=== PATIENT | female | born 1950 | race Caucasian/White ===

== ENCOUNTER 2016-08-21 12:43 | Emergency (ER) | payer MEDICARE, OTHER ==
[~2016-08-21] VITALS: Wt 105.0 kg
[~2016-08-21 12:43] MED LIST: ALEN70TA30; AMLO2.5T78 PO; BENA10TA48 PO; CALC-277; CARV6.2579; CLON-379 PO; CLON0.1T14; DOCU100C26; ERGO500014; GABA600T PO; HIGH BP MED PO; HYDR12.53; IBUP-1542; MECL25TA2; METO50TA16; OMEP20CA9; OXYB5TAB7; PRA40; SIMV20TA2; TEGRETOL PO; TRAM50TA2 PO
[2016-08-21] MEDS ORDERED: FAMOTIDINE 20 MG INJ IV ONE (16:00)
[2016-08-21] MEDS ORDERED: DIPHENHYDRAMINE 50 MG INJ IV STA (16:00)
[2016-08-21] MEDS ORDERED: METHYLPREDNISOLONE 125 MG INJ IV STA (16:00)
[2016-08-21] MEDS ORDERED: SOD CHLORIDE 0.9% 500 ML IV ONE (16:30)
[2016-08-21] MEDS ORDERED: FAMO-18 PO (17:29)
[2016-08-21] MEDS ORDERED: BEN25 PO (17:29)
[2016-08-21] MEDS ORDERED: PRED20TA PO (17:29)
[2016-08-21] MEDS ORDERED: EPIN0.3P4 INJ (17:30)
[2016-08-21] MEDS ORDERED: GUAI-637 PO (17:33)
--- NOTE | 2016-08-21 17:43 | ERD ---
ER Documentation Chief Complaint Date/Time DATE: 08/21/16 TIME: 17:39 Chief Complaint ALLERGIC REACTION X 1 YEAR WORST TODAY HPI Patient is a 66-year-old female with a history of chronic urticaria, hypertension, hyperlipidemia, osteoporosis, who presents emergency department for hives. Patient states that she has had hives for over one year now. Patient states that that her hives started after receiving amoxicillin 1 year ago. Patient states she is seen numerous purchase analyst as well as qualifications examiner for her chronic hives. Patient reports being allergy tested however she states that they have been unable to find out the exact cause of her ongoing hives. Patient states she has also had numerous biopsies and blood tests done. Patient states she has been taking Zyrtec, Zantac, singular, no relief of symptoms. Patient received was started on Xolair. Patient denies any chest pain, chest tightness, shortness of breath, tongue swelling, lip swelling, throat swelling or loss of consciousness. ROS All systems reviewed and are negative except as per history of present illness. Medications Home Meds Active Scripts Guaifenesin* (Robitussin*) 100 Mg/5 Ml Syrup, 100 MG PO Q4H Y for COUGH, #1 BOT Prov:MARI HUGO PA-C 08/21/16 Epinephrine (Epipen 2-Ok) 0.3 Mg/0.3 Ml Pen.injctr, 1 EA INJ ONCE Y for ALLERGIC REACTION, #1 EA Prov:MARI HUGO PA-C 08/21/16 Diphenhydramine Hcl* (Benadryl*) 25 Mg Cap, 25 MG PO Q6, #30 CAP Prov:MARI HUGO PA-C 08/21/16 Prednisone* (Prednisone*) 20 Mg Tab, 40 MG PO DAILY for 4 Days, TAB Prov:MARI HUGO PA-C 08/21/16 Tramadol HCl (Tramadol HCl) 50 Mg Tab, 50 MG PO Q6H Y for PAIN, #40 TAB Prov:REGGLENDY STANLEY 08/10/14 Gabapentin* (Neurontin*) 600 Mg Tablet, 600 MG PO TID for 30 Days, TAB Prov:REGGLENDY STANLEY 08/10/14 Clonidine Hcl* (Clonidine Hcl*) 0.1 Mg Tab, 0.1 MG PO Q4H Y for sbp>160, #30 TAB Prov:REGIDOR,GLENDY 08/10/14 Benazepril Hcl* (Benazepril Hcl*) 10 Mg Tablet, 10 MG PO BID, #60 TAB Prov:GLENDY IBARRA 08/10/14 Amlodipine Besylate* (Amlodipine Besylate*) 2.5 Mg Tablet, 2.5 MG PO BID for 30 Days, TAB Prov:GLENDY IBARRA 08/10/14 Reported Medications Hydrochlorothiazide (Hydrochlorothiazide) 12.5 Mg Capsule, 1 DAILY 08/09/14 Alendronate Sodium* (Fosamax*) 70 Mg Tablet, 1 WEEKLY 08/09/14 Omeprazole* (Prilosec*) 20 Mg Capsule.dr, 1 DAILY 08/09/14 Docusate Sodium* (Doc-Q-Lace*) 100 Mg Capsule, 1 DAILY 08/09/14 Oxybutynin Chloride* (Ditropan*) 5 Mg Tab, 1 DAILY 08/09/14 Meclizine Hcl* (Antivert*) 25 Mg Tablet, 1 DAILY 08/09/14 Metoprolol Succinate* (Toprol XL*) 50 Mg Tab.er.24h, 1 DAILY 08/09/14 Clonidine Hcl* (Catapres*) 0.1 Mg Tablet, 1 Q12H 08/09/14 Ibuprofen* (Motrin*) 600 Mg Tab, 1 Q6H 08/09/14 Carvedilol* (Carvedilol*) 6.25 Mg Tablet, 1 DAILY 08/09/14 Calcium Carbonate/Vitamin D3 (OYSTER SHELL 500 MG + VIT D TB) 1 Each Tablet, 1 DAILY 08/09/14 Ergocalciferol* (Drisdol* (Vitamin D2)) 50,000 Unit Capsule, 1 WEEKLY 08/09/14 Simvastatin (Simvastatin) 20 Mg Tablet, 1 DAILY 08/09/14 Pravastatin Sodium* (Pravachol*) 40 Mg Tablet, 1 DAILY 08/09/14 [Tegretol] No Conflict Check, PO DAILY 12/07/10 [High Bp Med] No Conflict Check, PO DAILY 12/07/10 Discontinued Scripts Famotidine* (Pepcid*) 20 Mg Tablet, 20 MG PO BID for 7 Days, TAB Prov:MARI HUGO PA-C 08/21/16 Allergies Allergies: Coded Allergies: No Known Drug Allergies (Verified Allergy, Unknown, 08/09/14) PMhx/Soc History of Surgery: Yes (RIGHT ANKLE FRACTURE AND SURGERY,2012) Anesthesia Reaction: No Hx Neurological Disorder: Yes Hx Respiratory Disorders: No Hx Cardiac Disorders: Yes (HTN) Hx Psychiatric Problems: No Hx Miscellaneous Medical Probl: Yes (HTN, hyperlipidemia, osteoporosis) Hx Alcohol Use: No Hx Substance Use: No Hx Tobacco Use: No Physical Exam Vitals Vital Signs Date Time Temp Pulse Resp B/P Pulse Ox O2 Delivery O2 Flow Rate FiO2 08/21/16 13:04 99.1 92 18 155/78 99 Physical Exam GENERAL: Well-developed, well-nourished female. Appears in no acute distress. No abdominal retractions, no nasal flaring, no tripoding. Patient is speaking in full sentences. HEAD: Normocephalic, atraumatic. No deformities or ecchymosis. EYE: Pupils equal, round, and reactive to light. EOMs intact. No conjunctival erythema. No eye discharge. ENT: External ear without any masses or tenderness. Auditory canals clear bilaterally. TM visualized bilaterally, non-erythematous, non-bulging. Nasal mucosa pink with no discharge. Oropharynx is pink without any tonsillar erythema or exudates. No uvula deviation. No kissing tonsils. No tongue swelling noted. No lip swelling noted. No throat swelling noted.. Patient is able to swallow secretions without any difficulty. NECK: Supple. No meningismus. Normal ROM of the neck. LUNG: Clear to auscultation bilaterally. No rhonchi, wheezing, rales or coarse breath sounds. HEART: Regular rate and rhythm. No murmurs, rubs or gallops. BACK: No midline tenderness. EXTREMITIES: Equal pulses bilaterally. No peripheral clubbing, cyanosis or edema. No unilateral leg swelling. NEUROLOGIC: Alert and oriented to person, place and time. Moving all four extremities. 5/5 strength in all extremities. Normal speech. Steady gait. SKIN: Normal color. Warm and dry. Large erythematous plaque-like lesions noted throughout the patient's body included on her face, neck and torso. Results 24 hrs Current Medications Medications (Trade) Dose Ordered Sig/Ashley Route PRN Reason Start Time Stop Time Status Last Admin Dose Admin Diphenhydramine HCl (Benadryl) 50 mg ONCE STAT IV 08/21/16 16:00 08/21/16 16:02 DC 08/21/16 16:13 Methylprednisolone Sodium Succinate (Solu-Medrol) 125 mg ONCE STAT IV 08/21/16 16:00 08/21/16 16:02 DC 08/21/16 16:13 Famotidine 20 mg 20 mg ONCE ONCE IV 08/21/16 16:00 08/21/16 16:02 DC 08/21/16 16:13 Sodium Chloride (NS) 500 ml @ 500 mls/hr Q1H ONCE IV 08/21/16 16:30 08/21/16 17:29 DC 08/21/16 16:13 Procedures/MDM ED COURSE: The patient was stable throughout ED course. I kept the patient and/or family informed of laboratory and diagnostic imaging results throughout the ED course. . MEDICATIONS GIVEN: IV fluids, Benadryl, Pepcid, Solu-Medrol Patient tolerated medication well with no adverse reactions. Patient reported improvement in pain. MEDICAL DECISION MAKING: This is a 66-year-old female with a chronic history of hives who presents emergency department for hives x1 year. Patient reports having numerous tests including blood tests, biopsies as well as seeing a qualifications examiner and purchase analyst for her symptoms. Patient was recently just started on Xolair. Vital signs were reviewed. Patient was afebrile. Patient was not hypoxic. Patient's oxygenation's was noted to be 99%. No signs of acute respiratory distress were noted. Patient was speaking in full sentences. Patient denied any lip swelling , tongue swelling, throat swelling. Skin exam revealed large erythematous plaque-like lesions throughout the patient's body consistent with hives. Patient was given IV fluids, Benadryl, Pepcid, Solu-Medrol here in the emergency department which did improve her hives slightly. Patient reported feeling better and wished to go home. Given these findings, the patients presentation is most consistent with chronic hives. I have a much lower clinical concern for necrotizing fasciitis, sepsis, gangrene, Wilbert-Hasmukh syndrome, toxic epidural necrolysis, abscess, cellulitis, herpes zoster, viral exanthem, anaphylaxis, fungal infection, insect bite, impetigo, dermatitis. Prior discharge patient developed dry cough. Patient will be a given a prescription for Robitussin. Low suspicion for pneumonia or bronchitis at this time. PRESCRIPTIONS: Prednisone, Benadryl, EpiPen, Robitussin DISCHARGE: At this time, patient is stable for discharge and outpatient management. Anaphylaxis precautions were discussed with the patient and her family. Follow- up with her purchase analyst and qualifications examiner as scheduled. I have advised the patient to avoid any new products, creams or possible allergens. I have advised the patient to avoid scratching the lesions. I have instructed the patient to follow-up with his/her primary care physician in 1-2 days. I have instructed the patient to promptly return to the ER at any time for any new or worsening symptoms including increased pain, fever, redness, swelling, warmth, difficulty breathing or vomiting. The patient and/or family expressed understanding of and agreement with this plan. All questions were answered. Home care instructions were provided. Departure Diagnosis: Primary Impression: Allergic reaction Encounter type: initial encounter Qualified Code: T78.40XA - Allergic reaction, initial encounter Condition: Stable Patient Instructions: First Aid: Allergic Reactions Referrals: VICTOR MANUEL GARCIA ([facility]) (PCP) Additional Instructions: Call your primary care doctor TOMORROW for an appointment during the next 1-2 days.See the doctor sooner or return here if your condition worsens before your appointment time. Follow-up with your qualifications examiner and/or your purchase analyst for further management of your ongoing allergies and hives. MARI HUGO PA-C August 21, 2016 17:43
[2016-08-21 17:45] VITALS: BP 141/65; PULSE 95; RESP 16; TEMP 99.1
== END 2016-08-21 17:47 | disposition home or self-care (01) ==
LOC: FTE 12:43
DX: L50.0 Allergic urticaria (principal); I10 Essential (primary) hypertension
CPT/HCPCS: J1200; J2930; J7040; 96374; 96375